=== PATIENT | female | born 1945 | race Caucasian/White ===

== ENCOUNTER → 2017-10-03 | Outpatient (CLI) | payer OTHER ==
[~2017-10-03] VITALS: Ht 152.4 cm; Wt 106.6 kg
[~2017-10-03] MED LIST: ANTACID500 MG PO; Aspirin E.C. PO; BISAC-EVAC10 MG PR; Bactrim,Septra DS 80 PO; CALCIUM 600 +1 EAC2 PO; COUMADIN PO; CYANOCOBAL1000 MCG/2 IM; DULCOLAX10 MG PR; Dulcolax PR; EXELON6 MG PO; Exelon PO; FLEET ENEMA-AD118 ML PR; FOSAMAX70 MG PO; Fosamax PO; GLIPIZIDE10 MG PO; GLUCAGEN1 M1 IM; GLUCOPHAGE1000 MG PO; GLUCOPHAGE500 MG PO; Glucophage PO; Glucotrol PO; HUMALOG100 UNIT/2 SC; LANTUS 3 M100 UNITS1 SC; LASIX40 MG PO; LO-DOSE ASPIRIN81 M2 PO; Lovenox SC; MEVACOR40 MG PO; MICRO-K10 ME2 PO; MILK OF MAGN PO; MIRALAX17 GM PO; Mevacor PO; Miralax, Glycolax PO; NEURONTIN300 MG PO; NOVOLOG PE100 UNITS/ SC; OXYCODONE HCL E10 MG PO; PERCOCET 5/31 TABLET PO; PRECOSE PO; PRECOSE100 MG PO; PRILOSEC20 MG PO; PRINIVIL5 MG PO; PRINZIDE 10-121 EACH PO; Percocet 5/325,Endoc PO; PriLOSEC PO; TUMS500 MG PO; TYLENOL REGULA325 MG PO; ULTRAM50 MG PO; VOLTAREN 1% GE100 GM TP; ZANTAC75 M1 PO; Zestoretic,Prinzide PO; Zestril,Prinivil PO
== END | disposition home or self-care (01) ==
LOC: AMB 13:15
PROVIDERS: Specialist
DX: D50.9 Iron deficiency anemia, unspecified (principal); K57.30 Diverticulosis of large intestine without perforation or abscess without bleeding; K64.8 Other hemorrhoids; K64.4 Residual hemorrhoidal skin tags; D12.5 Benign neoplasm of sigmoid colon; K63.89 Other specified diseases of intestine; D12.3 Benign neoplasm of transverse colon; K63.5 Polyp of colon; E11.9 Type 2 diabetes mellitus without complications; E78.5 Hyperlipidemia, unspecified; I10 Essential (primary) hypertension; Z86.73 Personal history of transient ischemic attack (TIA), and cerebral infarction without residual deficits; Z79.82 Long term (current) use of aspirin; Z79.4 Long term (current) use of insulin
CPT/HCPCS: 82948; 88305; 93005; J2250